=== PATIENT | female | born 1995 | race Caucasian/White ===

== ENCOUNTER 2023-01-26 21:09 | Emergency (ER) | payer OTHER ==
[2023-01-26 21:16] VITALS: RESP 18; BMI 25.4
[2023-01-26] MEDS ORDERED: SUCRALFATE 1 GM TABLET (FP) PO ONE (22:10)
[2023-01-26] MEDS ORDERED: SUCRALFATE 1 GM TABLET (FP) ONE (22:26)
[2023-01-26 22:41] LABS: BASO % 0.1 % (0-2.0); EOS % 0.3 % (0-4.5); HEMATOCRIT 40.5 % (32.4-45.2); HEMOGLOBIN 13.4 GM/dL (10.7-15.3); LYMPH % 29.4 % (8-40); MCH 25.8 pg (25.7-33.7); MEAN CELL VOLUME 78.1 fl (80-96); MEAN PLT VOLUME 7.4 fl (7.5-11.1); MONO % 9.7 % (3.8-10.2); NEUT % 60.5 % (42.8-82.8); PLATELET COUNT 297 10^3/uL (134-434); RBC 5.18 M/mm3 (3.60-5.2); RDW 14.6 % (11.6-15.6); WHITE BLOOD COUNT 8.6 K/mm3 (4.0-10.0)
[2023-01-26 22:52] LABS: INR 1.02 (0.83-1.09); PROTHROMBIN TIME (PATIENT) 11.8 SEC (9.7-13.0)
[2023-01-26 23:02] LABS: POTASSIUM 3.9 mmol/L (3.5-5.1)
[2023-01-26 23:05] LABS: ALBUMIN 3.9 g/dl (3.4-5.0); BLOOD UREA NITROGEN 16.2 mg/dL (7-18); CALCIUM 9.9 mg/dL (8.5-10.1)
[2023-01-26 23:08] LABS: CREATININE 0.7 mg/dL (0.55-1.3)
[2023-01-26 23:09] LABS: BILIRUBIN,TOTAL 0.2 mg/dL (0.2-1); TOT PROT 8.1 g/dl (6.4-8.2)
[2023-01-26] MEDS ORDERED: SODIUM CHLORIDE 0.9% 500 ML INFUS.BAG IV ONE (23:59)
[2023-01-27] MEDS ORDERED: MAG HYDROX/AL HYDROX/SIMETH 30 ML UNIT-DOSE CUP PO ONE
[2023-01-27] MEDS ORDERED: MAG HYDROX/AL HYDROX/SIMETH 30 ML UNIT-DOSE CUP ONE (00:25)
[2023-01-27 01:05] VITALS: BP 116/74; TEMP 96.8
[2023-01-27 01:13] VITALS: PULSE 88
== END 2023-01-27 02:23 | disposition home or self-care (01) ==
LOC: JER 21:09
DX: R10.13 Epigastric pain (principal); R11.0 Nausea; K29.00 Acute gastritis without bleeding; K21.9 Gastro-esophageal reflux disease without esophagitis; R00.0 Tachycardia, unspecified
CPT/HCPCS: 36415; 80053; 83690; 84703; 85025; 85610; 86850; 86900; 86901; 99283-25

== ENCOUNTER 2024-03-20 17:17 | Emergency (ER) | payer BC, OTHER ==
[2024-03-20 17:28] VITALS: TEMP 98.2; BMI 24.4
[2024-03-20] MEDS ORDERED: LORazepam 2 MG TABLET PO ONE (17:46)
[2024-03-20 18:18] LABS: HEMATOCRIT 40.1 % (32.4-45.2); HEMOGLOBIN 13.2 GM/dL (10.7-15.3); LYMPH % 22.1 % (8-40); MCH 25.7 pg (25.7-33.7); MCHC 32.9 g/dl (32.0-36.0); MEAN CELL VOLUME 77.9 fl (80-96); MEAN PLT VOLUME 7.5 fl (7.5-11.1); MONO % 8.4 % (3.8-10.2); NEUT % 69.5 % (42.8-82.8); PLATELET COUNT 312 10^3/uL (134-434); RBC 5.15 M/mm3 (3.60-5.2); RDW 15.2 % (11.6-15.6)
[2024-03-20] MEDS ORDERED: ONDANSETRON 4 MG/2 ML VIAL ONE (18:18)
[2024-03-20] MEDS ORDERED: ACETAMINOPHEN INJECTION 100 ML IVPB ONE (18:18)
[2024-03-20] MEDS ORDERED: FAMOTIDINE 20 MG/50 ML IVPB 20 MG/50 ML MG IVPB ONE (18:18)
[2024-03-20 18:41] VITALS: BP 117/70; RESP 20
[2024-03-20 18:42] LABS: POTASSIUM 4.1 mmol/L (3.5-5.1)
[2024-03-20] MEDS: SODIUM CHLORIDE 1,000 ML IV STA (18:43)
[2024-03-20] MEDS: FAMOTIDINE 20 MG/50 ML IVPB 20 MG/50 ML MG IVPB ONE (18:43)
[2024-03-20] MEDS: ONDANSETRON 4 MG/2 ML VIAL IVPUSH ONE (18:43)
[2024-03-20 18:45] LABS: BLOOD UREA NITROGEN 14.8 mg/dL (7-18); MAGNESIUM 2.1 mg/dL (1.8-2.4)
[2024-03-20 18:48] LABS: CREATININE 0.6 mg/dL (0.55-1.3)
[2024-03-20 18:49] LABS: BILIRUBIN,TOTAL 0.4 mg/dL (0.2-1); TOT PROT 8.3 g/dl (6.4-8.2)
[2024-03-20 19:27] LABS: EPI CELLS >36 /uL (0-25.1); HYALINE CASTS 1 /uL (0-3.1); URINE APPEARANCE CLEAR; URINE BACTERIA 2164 /uL (0-1359); URINE BILIRUBIN NEGATIVE (NEGATIVE); URINE COLOR YELLOW; URINE GLUCOSE (UA) NEGATIVE (NEGATIVE); URINE KETONE NEGATIVE (NEGATIVE); URINE LEUK ESTERASE 3+ (NEGATIVE); URINE NITRITE NEGATIVE (NEGATIVE); URINE PROTEIN NEGATIVE (NEGATIVE); URINE RBC 6 /uL (0-23.9); URINE UROBILINOGEN 0.2 mg/dL (0.2-1.0); URINE WBC 68 /uL (0-25.8)
[2024-03-20 21:22] LABS: HIV INTERPRETATION NEGATIVE (NEGATIVE)
[2024-03-20 21:31] VITALS: PULSE 82
== END 2024-03-20 21:53 | disposition home or self-care (01) ==
LOC: JER 17:17
PROC: 3E033GC Introduction of Other Therapeutic Substance into Peripheral Vein, Percutaneous Approach (ICD-10-PCS; principal; 2024-03-20)
PROC: 3E033GC Introduction of Other Therapeutic Substance into Peripheral Vein, Percutaneous Approach (ICD-10-PCS; 2024-03-20)
DX: R00.2 Palpitations (principal); F41.9 Anxiety disorder, unspecified; R11.0 Nausea
CPT/HCPCS: 36415; 80053; 81003; 83735; 84443; 84484; 84703; 85025; 86803; 87077; 87086; 87389; 93005; 93010; 99284-25